=== PATIENT | male | born 1985 | race Caucasian/White ===

== ENCOUNTER 2018-03-11 17:45 | Emergency (ER) | payer OTHER ==
[2018-03-11 18:15] VITALS: O2SAT 100
[2018-03-11] MEDS ORDERED: Lidocaine 1% (10 ml) Inj INFIL ONE (18:57)
[2018-03-11] MEDS ORDERED: Lidocaine PF 2% (5 ml) Inj (For Cardiac Arrhy) ONE (19:20)
--- NOTE | 2018-03-11 19:38 | ED PDOC ---
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 Patient states earlier today while fixing a mural in his home, he accidentally cut his left forearm. He denies any numbness, tingling, or focal weakness. Tetanus is up to date. PMD: Unknown <Lalit Monique - Last Filed: 03/11/18 20:55> <Garry Arroyo III - Last Filed: 03/16/18 13:36> - HPI Time Seen by Provider: 03/11/18 18:22 Chief Complaint (Nursing): Abnormal Skin Integrity Supervising Attending Note - Attestation: I have reviewed all pertinent clinical information, including history, physical exam and plan: Yes <Garry Arroyo III - Last Filed: 03/16/18 13:36> Past Medical History Reviewed: Historical Data, Nursing Documentation, Vital Signs Vital Signs: Last Vital Signs Temp 98.8 F 03/11/18 18:12 Pulse 76 03/11/18 18:12 Resp 16 03/11/18 18:12 BP 122/69 03/11/18 18:12 Pulse Ox 100 03/11/18 18:12 - Family History Family History: States: No Known Family Hx - Immunization History Hx Tetanus Toxoid Vaccination: No Hx Influenza Vaccination: No Hx Pneumococcal Vaccination: No <Lalit Monique - Last Filed: 03/11/18 20:55> Vital Signs: Last Vital Signs Temp 98.1 F 03/11/18 20:20 Pulse 61 03/11/18 20:20 Resp 18 03/11/18 20:20 BP 114/69 03/11/18 20:20 Pulse Ox 100 03/11/18 20:56 <Garry Arroyo III - Last Filed: 03/16/18 13:36> - Home Medications Home Medications: Ambulatory Orders Medication Instructions Recorded Acetaminophen with Codeine 1 tab PO Q4H PRN #50 tab 03/26/15 [Tylenol with Codeine No. 3 300 mg-30 mg] RX: Ciprofloxacin [Cipro] 500 mg PO Q12H #14 tab 03/26/15 metroNIDAZOLE [Flagyl] 500 mg PO TID #21 tab 03/26/15 Cephalexin [cephalexin] 500 mg PO Q6 #28 cap 03/11/18 - Allergies Allergies/Adverse Reactions: Allergies Allergy/AdvReac Type Severity Reaction Status Date / Time No Known Allergies Allergy Verified 03/24/15 16:06 Review of Systems ROS Statement: Except As Marked, All Systems Reviewed And Found Negative Skin: Positive for: Lesions (laceration to left arm) Neurological: Negative for: Weakness, Numbness, Incoordination <Lalit Monique Quan - Last Filed: 03/11/18 20:55> Physical Exam - Reviewed Nursing Documentation Reviewed: Yes Vital Signs Reviewed: Yes - Physical Exam Appears: Positive for: Well, Non-toxic, No Acute Distress Skin: Positive for: Normal Color, Warm, Dry Pulses-Radial (L): 2+ Pulses-Radial (R): 2+ Extremity: Positive for: Normal ROM, Capillary Refill (less than 2 sec), Other (2 inch linear, superficial laceration to the ventral aspect of left forearm, no active bleeding). Negative for: Deformity Neurologic/Psych: Positive for: Alert, Oriented (x3). Negative for: Motor/Sensory Deficits <Lalit Monique Quan - Last Filed: 03/11/18 20:55> - ECG O2 Sat by Pulse Oximetry: 100 (RA) Pulse Ox Interpretation: Normal <Lalit Monique Quan - Last Filed: 03/11/18 20:55> Procedure: Wound Repair - Time Out Time Out: Side verified, Site verified, Patient ID confirmed, Sterile procedures obs. - Consent Obtained Consent obtained: Emergent consent implied - Performed by Performed by: Mid-level Provider (Kayden) - Indications Indication(s):: Laceration - Location Location:: Left, Forearm Shape:: Linear Dimensions Length cm: 2 in Depth:: Epidermis - Anesthetic Technique Anesthetic Technique: Local Local/Regional Anesthetic:: Lidocaine 1% - Wound Examination Wound Examination:: Contaminated - Debris Debris:: Dirt - Irrigated Irrigated with ml of normal saline: 300 - Complexity Complexity:: Simple (one layer) - Wound repair method Sutures:: #, Size (4-0), Technique (simple interrupted) - Patient tolerated procedure Patient Tolerated Procedure:: Well <Lalit Monique Last Filed: 03/11/18 20:55> Medical Decision Making Medical Decision Making: Impression: Forearm laceration Plan: * Lido 1% ordered for laceration repair Scribe Attestation: Documented by Monica Amin, acting as a scribe for Lalit Monique PA-C. Provider Scribe Attestation: All medical record entries made by the Scribe were at my direction and personally dictated by me. I have reviewed the chart and agree that the record accurately reflects my personal performance of the history, physical exam, medical decision making, and the department course for this patient. I have also personally directed, reviewed, and agree with the discharge instructions and disposition. <Lalit Monique - Last Filed: 03/11/18 20:55> Disposition - Patient ED Disposition Is Patient to be Admitted: No - Disposition Disposition: Routine/Home Disposition Time: 20:10 <Lalit Monique - Last Filed: 03/11/18 20:55> <Garry Arroyo III - Last Filed: 03/16/18 13:36> - Clinical Impression Clinical Impression: Forearm laceration - Disposition [facility] Condition: STABLE Additional Instructions: Suture removal in 7 days. ALVINA MEZA, thank you for letting us take care of you today. Your provider was Garry Arroyo III, DO and you were treated for LEFT ARM LACERATION. The emergency medical care you received today was directed at your acute symptoms. If you were prescribed any medication, please fill it and take as directed. It may take several days for your symptoms to resolve. Return to the Emergency Department if your symptoms worsen, do not improve, or if you have any other problems. Please contact your doctor or call one of the physicians/clinics you have been referred to that are listed on the Patient Visit Information form that is included in your discharge packet. Bring any paperwork you were given at discharge with you along with any medications you are taking to your follow up visit. Our treatment cannot replace ongoing medical care by a primary care provider outside of the emergency department. Thank you for allowing the [facility] team to be part of your care today. If you had an X-Ray or CT scan: A Radiologist will review the ED reading if any change in treatment is needed we will contact you. If you had a blood, urine, or wound culture: It will take several days for the results, if any change in treatment is needed we will contact you. If you had an STI test: It will take 48 hours for the results. Please call after 1 week if you have not heard back. Prescriptions: Cephalexin [cephalexin] 500 mg PO Q6 #28 cap Instructions: Laceration Repair With Stitches (DC) Forms: [employer] (English) Print Language: NEPALI - PA / COMBINATION TECHNICIAN / Resident Statement MD/DO has reviewed & agrees with the documentation as recorded. <Lalit Monique E - Last Filed: 03/11/18 20:55>
[2018-03-12 01:07] VITALS: BP 114/69; PULSE 61; RESP 18; TEMP 98.1
== END 2018-03-11 20:26 | disposition home or self-care (01) ==
LOC: H.ER 17:45
DX: S51.812A Laceration without foreign body of left forearm, initial encounter (principal); W26.9XXA Contact with unspecified sharp object(s), initial encounter; Y92.89 Other specified places as the place of occurrence of the external cause

== ENCOUNTER 2018-03-23 18:19 | Emergency (ER) | payer OTHER ==
[2018-03-23 18:29] VITALS: BP 122/71; PULSE 97; RESP 14; TEMP 98.3; O2SAT 98
--- NOTE | 2018-03-23 20:42 | ED PDOC ---
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 Patient received sutures on 03/11/18 and was prescribed Keflex but did not take the medication nor did he fill the prescription. He states he has had mild redness to wound but denies any pain, discharge or fever. PMD: Jimmie Cruz Past Medical History Reviewed: Historical Data, Nursing Documentation, Vital Signs Vital Signs: Last Vital Signs Temp 98.3 F 03/23/18 18:27 Pulse 97 H 03/23/18 18:27 Resp 14 03/23/18 18:27 BP 122/71 03/23/18 18:27 Pulse Ox 98 03/23/18 18:27 - Medical History PMH: No Chronic Diseases - Surgical History Other surgeries: inguinal hernia repair - Family History Family History: States: No Known Family Hx - Immunization History Hx Tetanus Toxoid Vaccination: No Hx Influenza Vaccination: No Hx Pneumococcal Vaccination: No - Home Medications Home Medications: Ambulatory Orders Medication Instructions Recorded Acetaminophen with Codeine 1 tab PO Q4H PRN #50 tab 03/26/15 [Tylenol with Codeine No. 3 300 mg-30 mg] RX: Ciprofloxacin [Cipro] 500 mg PO Q12H #14 tab 03/26/15 metroNIDAZOLE [Flagyl] 500 mg PO TID #21 tab 03/26/15 Cephalexin [cephalexin] 500 mg PO Q6 #28 cap 03/11/18 Cephalexin [cephalexin] 500 mg PO Q6 #28 cap 03/23/18 - Allergies Allergies/Adverse Reactions: Allergies Allergy/AdvReac Type Severity Reaction Status Date / Time No Known Allergies Allergy Verified 03/23/18 18:27 Review of Systems ROS Statement: Except As Marked, All Systems Reviewed And Found Negative Constitutional: Negative for: Fever Musculoskeletal: Positive for: Other (mild redness to wound on left forearm). Negative for: Arm Pain (discharge) Physical Exam - Reviewed Nursing Documentation Reviewed: Yes Vital Signs Reviewed: Yes - Physical Exam Appears: Positive for: Well Head Exam: Positive for: ATRAUMATIC, NORMOCEPHALIC Skin: Positive for: Normal Color, Warm, Dry Extremity: Positive for: Normal ROM, Other (left ventral forearm has multiple sutures; minimally erythema surrounding wound; (-) discharge, fluctuations, swelling, dehiscence ) - ECG O2 Sat by Pulse Oximetry: 98 (RA) Pulse Ox Interpretation: Normal - Progress ED Course And Treament: The PA successfully removed sutures with no difficulty. Medical Decision Making Medical Decision Making: Initial time: 18:53 Initial Plan: Patient has been instructed to take Keflex without fail and return to the ED within 48 hours or see PMD. Patient instructed to return immediately if redness worsens or if he develops a fever. Scribe Attestation: Documented by Luis Issa, acting as a scribe for Lalit Manzo Provider Scribe Attestation: All medical record entries made by the Scribe were at my direction and personally dictated by me. I have reviewed the chart and agree that the record accurately reflects my personal performance of the history, physical exam, medical decision making, and the department course for this patient. I have also personally directed, reviewed, and agree with the discharge instructions and disposition. Disposition - Clinical Impression Clinical Impression: Encounter for removal of sutures, Cellulitis - Patient ED Disposition Is Patient to be Admitted: No - Disposition Referrals: [facility] [Outside] [facility] [Outside] Disposition: Routine/Home Disposition Time: 19:30 Condition: STABLE Additional Instructions: RETURN TO ED OR GO TO YOUR DOCTOR IN 48 HOURS FOR WOUND CHECK BUT GO TO ED IMMEDIATELY IF REDNESS WORSENS OR IF FEVER DEVELOPS TAKE YOUR ANTIBIOTICS TODAY. LUIZ MEZA, thank you for letting us take care of you today. Your provider was Garry Arroyo III, DO and you were treated for SUTURE REMOVAL. The emergency medical care you received today was directed at your acute symptoms. If you were prescribed any medication, please fill it and take as directed. It may take several days for your symptoms to resolve. Return to the Emergency Department if your symptoms worsen, do not improve, or if you have any other problems. Please contact your doctor or call one of the physicians/clinics you have been referred to that are listed on the Patient Visit Information form that is included in your discharge packet. Bring any paperwork you were given at discharge with you along with any medications you are taking to your follow up visit. Our treatment cannot replace ongoing medical care by a primary care provider outside of the emergency department. Thank you for allowing the [facility] team to be part of your care today. If you had an X-Ray or CT scan: A Radiologist will review the ED reading if any change in treatment is needed we will contact you. If you had a blood, urine, or wound culture: It will take several days for the results, if any change in treatment is needed we will contact you. If you had an STI test: It will take 48 hours for the results. Please call after 1 week if you have not heard back. Prescriptions: Cephalexin [cephalexin] 500 mg PO Q6 #28 cap Instructions: Stitches Removal, Cellulitis (Skin Infection), Adult (DC) Forms: [employer] (Nauruan) Print Language: CZECH
== END 2018-03-23 19:47 | disposition home or self-care (01) ==
LOC: H.ER 18:19
DX: L03.90 Cellulitis, unspecified (principal); Z45.82 Encounter for adjustment or removal of myringotomy device (stent) (tube)